=== PATIENT | female | born 1995 | race Caucasian/White ===

== ENCOUNTER 2019-12-14 08:52 | Emergency (ER) | payer OTHER ==
[2019-12-14] MEDS ORDERED: Acetaminophen 500 MG Tab PO ONE (09:15)
--- NOTE | 2019-12-14 09:19 | EDM.PDOC ---
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 LMP roughly 3-months ago. . Patient found out about via home test last week. Yesterday developed mild lower abdominal cramping pains and light bleeding. Overnight noted heavier bleeding w/ passage of several large clots and with worsening cramping. Is using about 1 PPH. Has not had any imaging of this but has appointment scheduled for 2 days from now. Abdominal Pain Pain Score (Numeric/FACES): 4 - Related Data Allergies Allergy/AdvReac Type Severity Reaction Status Date / Time No Known Allergies Allergy Verified 12/14/19 09:22 Home Meds: Home Meds . [No Known Home Meds] 04/11/18 [History] Past Medical History - Past Health History Medical/Surgical History: Denies Medical/Surgical History Psychiatric History: Reports: Anxiety, Depression - Past Surgical History HEENT Surgical History: Reports: Oral Surgery Social & Family History - Family History Family Medical History: Noncontributory - Caffeine Use Caffeine Use: Reports: None ED ROS GENERAL - Review of Systems Review Of Systems: Comprehensive ROS is negative, except as noted in HPI. ED EXAM - Physical Exam Exam: See Below Exam Limited By: No Limitations General Appearance: Alert, WD/WN, No Apparent Distress, Anxious Head: Atraumatic, Normocephalic Respiratory/Chest: No Respiratory Distress, Lungs Clear, Normal Breath Sounds Cardiovascular: Normal Peripheral Pulses, Tachycardia GI/Abdominal Exam: Soft, Non-Tender, No Distention (Female) Exam: Normal External Exam, Cervical Dilatation, Vaginal Bleeding. No: Adnexal Mass (L), Adnexal Mass (R), Adnexal Tenderness, Cervix Motion Tenderness Extremities: Normal Inspection Neurological: Alert Psychiatric: Normal Affect, Normal Mood Skin Exam: Warm, Dry Course - Vital Signs Last Recorded V/S: Last Vital Signs Temp 97.3 F 12/14/19 09:22 Pulse 98 12/14/19 09:22 Resp 17 12/14/19 09:22 BP 148/89 H 12/14/19 09:22 Pulse Ox 98 08/16/20 09:22 - Orders/Labs/Meds Labs: Laboratory Tests 12/14/19 12/14/19 12/14/19 Range/Units 09:30 09:30 09:30 WBC 15.35 H (4.0-11.0) K/uL RBC 4.30 (4.30-5.90) M/uL Hgb 13.0 (12.0-16.0) g/dL Hct 37.3 (36.0-46.0) % MCV 86.7 (80.0-98.0) fL MCH 30.2 (27.0-32.0) pg MCHC 34.9 (31.0-37.0) g/dL RDW Std Deviation 39.2 (28.0-62.0) fl RDW Coeff of Carmelina 13 (11.0-15.0) % Plt Count 313 (150-400) K/uL MPV 9.70 (7.40-12.00) fL Neut % (Auto) 68.8 (48.0-80.0) % Lymph % (Auto) 21.0 (16.0-40.0) % [place] % (Auto) 7.6 (0.0-15.0) % Eos % (Auto) 2.3 (0.0-7.0) % Baso % (Auto) 0.3 (0.0-1.5) % Neut # (Auto) 10.6 H (1.4-5.7) K/uL Lymph # (Auto) 3.2 H (0.6-2.4) K/uL [place] # (Auto) 1.2 H (0.0-0.8) K/uL Eos # (Auto) 0.4 (0.0-0.7) K/uL Baso # (Auto) 0.1 (0.0-0.1) K/uL Sodium 134 L (136-145) mmol/L Potassium 3.5 (3.5-5.1) mmol/L Chloride 100 (98-107) mmol/L Carbon Dioxide 22.2 (21.0-32.0) mmol/L BUN 9 (7.0-18.0) mg/dL Creatinine 0.8 (0.6-1.0) mg/dL Est Cr Clr Drug Dosing 101.51 mL/min Estimated GFR (MDRD) > 60.0 ml/min Glucose 132 H (74-106) mg/dL Calcium 8.6 (8.5-10.1) mg/dL HCG, Quant 1965.0 mIU/mL Urine Color Urine Appearance Urine pH (5.0-8.0) Ur Specific [place] (1.001-1.035) Urine Protein (NEGATIVE) mg/dL Urine Glucose (UA) (NEGATIVE) mg/dL Urine Ketones (NEGATIVE) mg/dL Urine Occult Blood (NEGATIVE) Urine Nitrite (NEGATIVE) Urine Bilirubin (NEGATIVE) Urine Ictotest Urine Urobilinogen (<2.0) EU/dL Ur Leukocyte Esterase (NEGATIVE) Urine RBC (0-2/HPF) Urine WBC (0-5/HPF) Ur Epithelial Cells (NONE-FEW) Urine Bacteria (NEGATIVE) Blood Type B POSITIVE 12/14/19 Range/Units 10:30 WBC (4.0-11.0) K/uL RBC (4.30-5.90) M/uL Hgb (12.0-16.0) g/dL Hct (36.0-46.0) % MCV (80.0-98.0) fL MCH (27.0-32.0) pg MCHC (31.0-37.0) g/dL RDW Std Deviation (28.0-62.0) fl RDW Coeff of Carmelina (11.0-15.0) % Plt Count (150-400) K/uL MPV (7.40-12.00) fL Neut % (Auto) (48.0-80.0) % Lymph % (Auto) (16.0-40.0) % [place] % (Auto) (0.0-15.0) % Eos % (Auto) (0.0-7.0) % Baso % (Auto) (0.0-1.5) % Neut # (Auto) (1.4-5.7) K/uL Lymph # (Auto) (0.6-2.4) K/uL [place] # (Auto) (0.0-0.8) K/uL Eos # (Auto) (0.0-0.7) K/uL Baso # (Auto) (0.0-0.1) K/uL Sodium (136-145) mmol/L Potassium (3.5-5.1) mmol/L Chloride (98-107) mmol/L Carbon Dioxide (21.0-32.0) mmol/L BUN (7.0-18.0) mg/dL Creatinine (0.6-1.0) mg/dL Est Cr Clr Drug Dosing mL/min Estimated GFR (MDRD) ml/min Glucose (74-106) mg/dL Calcium (8.5-10.1) mg/dL HCG, Quant mIU/mL Urine Color RED Urine Appearance CLOUDY Urine pH 5.5 (5.0-8.0) Ur Specific [place] >= 1.030 (1.001-1.035) Urine Protein 100 H (NEGATIVE) mg/dL Urine Glucose (UA) NEGATIVE (NEGATIVE) mg/dL Urine Ketones TRACE H (NEGATIVE) mg/dL Urine Occult Blood LARGE H (NEGATIVE) Urine Nitrite POSITIVE H (NEGATIVE) Urine Bilirubin SMALL H (NEGATIVE) Urine Ictotest NEGATIVE Urine Urobilinogen 1.0 (<2.0) EU/dL Ur Leukocyte Esterase TRACE H (NEGATIVE) Urine RBC TOO NUMEROUS TO CT H (0-2/HPF) Urine WBC 3-5 (0-5/HPF) Ur Epithelial Cells RARE (NONE-FEW) Urine Bacteria FEW (NEGATIVE) Blood Type Meds: Medications Discontinued Medications Generic Name Dose Route Start Last Admin Trade Name Tammie PRN Reason Stop Dose Admin Acetaminophen 1,000 mg 12/14/19 09:15 12/14/19 10:34 Tylenol Extra Strength PO 12/14/19 09:16 1,000 mg ONETIME ONE Administration - Re-Assessments/Exams Free Text/Narrative Re-Assessment/Exam: 12/14/19 09:18 Patient presents with vaginal bleeding and lower abdominal cramping pain. Known , has yet to have US or bloodwork. Will get pelvic US for r/o ectopic. Will get basic labs including blood type. 12/14/19 10:37 On exam, cervical os is open. Will f/u US report. 12/14/19 11:16 US remarkable for evidence of incomplete which is supported by physical exam and history. Will d/c patient with return precautions and with copy of US report. Patient has OBGYN f/u in 2 days. Departure - Departure Time of Disposition: 11:16 Disposition: Home, Self-Care 01 Condition: Good Clinical Impression: Incomplete - Discharge Information Referrals: PMD, PMD [Other] Forms: ED Department Discharge Additional Instructions: The following information is given to patients seen in the emergency department who are being discharged to home. This information is to outline your options for follow-up care. We provide all patients seen in our emergency department with a follow-up referral. The need for follow-up, as well as the timing and circumstances, are variable depending upon the specifics of your emergency department visit. If you don't have a primary care physician on staff, we will provide you with a referral. We always advise you to contact your personal physician following an emergency department visit to inform them of the circumstance of the visit and for follow-up with them and/or the need for any referrals to a consulting specialist. The emergency department will also refer you to a specialist when appropriate. T his referral assures that you have the opportunity for follow-up care with a specialist. All of these measure are taken in an effort to provide you with optimal care, which includes your follow-up. Under all circumstances we always encourage you to contact your private physician who remains a resource for coordinating your care. When calling for follow-up care, please make the office aware that this follow-up is from your recent emergency room visit. If for any reason you are refused follow-up, please contact the [facility] Emergency Department at and asked to speak to the emergency department charge nurse. Sepsis Event Note (ED) - Focused Exam Vital Signs: Vital Signs Temp Pulse Resp BP Pulse Ox 12/14/19 09:22 97.3 F 98 17 148/89 H 98
[2019-12-14 10:19] LABS: BLOOD UREA NITROGEN,BUN 9 mg/dL (7.0-18.0); CARBON DIOXIDE,CO2 22.2 mmol/L (21.0-32.0); CHLORIDE,CL 100 mmol/L (98-107); GLUCOSE RANDOM 132 mg/dL (74-106); POTASSIUM,K 3.5 mmol/L (3.5-5.1); SODIUM,NA 134 mmol/L (136-145)
--- NOTE | 2019-12-14 11:08 | US ---
Obstetrical ultrasound: Multiple real-time images were obtained transvaginally. Comparison: No previous obstetrical imaging for current is available. Dates: Current ultrasound: EDILIA 07/18/20, gestational age 9 weeks 0 days LMP: LMP given as 09/25/19, EDILIA is 07/01/20, gestational age 11 weeks 3 day Single intrauterine gestational sac is noted. Small embryo is seen but no heart activity is identified. Ovaries not visualized. Measurements: Gestational sac: 5.51 cm - 11 weeks 3 days [place]-rump length: 0.71 cm - 6 weeks 4 days Heart rate: None measured Impression: 1. Discrepant size of embryo and gestational sac. Dates as noted above. 2. No heart activity is seen. If patient does not miscarry, recommend repeat study in 11 days to confirm nonviable . 3. Nonvisualized ovaries but no adnexal abnormalities are seen. Diagnostic code #3 This report was dictated in MDT
== END 2019-12-14 11:34 | disposition home or self-care (01) ==
LOC: MW.ED 08:52
DX: O03.4 Incomplete spontaneous abortion without complication (principal); R00.0 Tachycardia, unspecified
CPT/HCPCS: 36415; 76801; 80048; 81001; 84702; 85025; 86900; 86901; 99284; A9270